=== PATIENT | male | born 1955 | race Caucasian/White ===

== ENCOUNTER → 2019-09-18 | Outpatient (CLI) | payer BC ==
[~2019-09-18] MED LIST: ASPIRIN81 MG PO; CELEBREX100 MG PO; FENTANYL CITRATE/PF 100MCG/2 ML INJ ONE; FLOMAX0.4 MG PO; GABAPENTIN300 MG PO; METOPROLOL SUCC25 MG PO; PROTONIX20 MG PO; TURMERIC538 MG PO; VITAMIN A8000 UNIT PO; VITAMIN D310 MCG PEG; VITAMIN E400 UNI1 PEG; ZINC SULFATE220 MG PO
== END ==
LOC: RAD 05:00 → EDSTATUS 07:30
PROVIDERS: ATTEND Surgery
DX: Z01.818 Encounter for other preprocedural examination (principal); K43.9 Ventral hernia without obstruction or gangrene; Z53.8 Procedure and treatment not carried out for other reasons
CPT/HCPCS: 93005; J3010

== ENCOUNTER 2021-04-08 12:13 | Inpatient (IN) | payer BC, MEDICARE ==
[~2021-04-08] VITALS: Ht 185.4 cm; Wt 110.3 kg
[~2021-04-08 12:13] MED LIST changes: -FENTANYL CITRATE/PF 100MCG/2 ML INJ ONE
[2021-04-08] MEDS ORDERED: HYDROCODONE/APAP 5MG-325MG TAB PO ONE (13:15)
[2021-04-08] MEDS ORDERED: DIPHENHYDRAMINE HCL INJ 50 MG/ML VIAL IV PRN (13:15)
[2021-04-08] MEDS ORDERED: ONDANSETRON HCL INJ 2MG/ML 2ML 2 MG/ML VIAL IV PRN ×2 (13:15→15:45)
[2021-04-08] MEDS ORDERED: FUROSEMIDE INJ 10 MG/ML 4 ML VIAL IV ONE (13:15)
[2021-04-08] MEDS ORDERED: FUROSEMIDE INJ 10 MG/ML 4 ML VIAL ONE (14:00)
[2021-04-08] MEDS ORDERED: HYDROCODONE/APAP 5MG-325MG TAB ONE (14:01)
[2021-04-08] MEDS ORDERED: HYDROCODONE/APAP 7.5MG-325MG 1 EA TAB PO PRN (15:45)
[2021-04-08] MEDS ORDERED: ACETAMINOPHEN 325 MG TAB PO PRN (15:45)
[2021-04-08] MEDS: METOPROLOL TARTRATE 25 MG TAB PO SCH (16:03)
[2021-04-08] MEDS ORDERED: METOPROLOL TARTRATE 50 MG TAB ONE (16:11)
[2021-04-08] MEDS ORDERED: ENOXAPARIN SOD INJ 40 MG/0.4 ML SYR SC SCH (17:00)
[2021-04-08 17:56] VITALS: BP 101/78
[2021-04-08 17:57] VITALS: BP 101/78
[2021-04-08 18:30] VITALS: BP 101/78
[2021-04-08] MEDS: LOSARTAN POTASSIUM 25 MG TAB PO SCH (19:00)
[2021-04-08 19:36] LABS: ANION GAP 16.1 mmol/L (8-16); CALCIUM 8.6 mg/dL (8.4-10.2); CREATININE, SERUM 2.06 mg/dL (0.72-1.25); POTASSIUM 4.1 mmol/L (3.5-5.1)
[2021-04-08 20:00] VITALS: BP 101/62
[2021-04-08 20:09] LABS: INR 1.34; PARTIAL THROMBOPLASTIN TIME 29.8 seconds (23.8-35.5); PROTHROMBIN TIME 17.5 seconds (11.9-14.5)
[2021-04-08] MEDS: FUROSEMIDE INJ 10 MG/ML 4 ML VIAL IV SCH (20:58)
[2021-04-08] MEDS: ZOLPIDEM TARTRATE 5 MG TAB PO PRN (22:30)
[2021-04-08 23:51] VITALS: BP 104/66
[2021-04-09] VITALS (8 sets, daily range): BP systolic 101–121; BP diastolic 76–88
[2021-04-09 05:02] LABS: BASOPHILS % 0.4 % (0.0-1.0); EOSINOPHILS # (AUTO) 0.2 (0.0-0.4); HEMATOCRIT 37.3 % (38.2-49.6); HEMOGLOBIN 11.4 g/dL (14.0-18.0); LYMPHOCYTES # (AUTO) 1.2 (1.0-3.2); LYMPHOCYTES % 15.2 % (18.0-39.1); MEAN CORPUSCULAR HEMOGLOBIN 26.5 pg (28-32); MEAN CORPUSCULAR HGB CONC 30.6 g/dL (31-35); MEAN CORPUSCULAR VOLUME 86.7 fL (81-99); MONOCYTES # (AUTO) 0.8 (0.2-0.8); MONOCYTES % 10.7 % (4.4-11.3); NEUTROPHILS # (AUTO) 5.5 (2.1-6.9); NEUTROPHILS % 70.4 % (38.7-80.0); PLATELET COUNT 178 x10e3/uL (140-360); RED CELL DISTRIBUTION WIDTH 14.5 % (11.7-14.4)
[2021-04-09 05:45] LABS: FERRITIN 37.9 ng/mL (21.81-274.66); THYROID STIMULATING HORMONE 1.389 uIU/mL (0.350-4.940)
[2021-04-09 05:46] LABS: ALBUMIN 3.3 g/dL (3.5-5.0); ALBUMIN/GLOBULIN RATIO 1.4 (0.8-2.0); ANION GAP 15.5 mmol/L (8-16); CALCIUM 8.3 mg/dL (8.4-10.2); CREATININE, SERUM 1.74 mg/dL (0.72-1.25); MAGNESIUM 1.9 MG/DL (1.3-2.1); POTASSIUM 3.5 mmol/L (3.5-5.1)
[2021-04-09] MEDS: FUROSEMIDE INJ 10 MG/ML 4 ML VIAL IV SCH ×3 (05:50→21:29)
[2021-04-09] MEDS: METOPROLOL TARTRATE 25 MG TAB PO SCH ×2 (08:31→16:56)
[2021-04-09] MEDS: METOPROLOL SUCCINATE 25 MG TAB XL PO SCH (08:31)
[2021-04-09] MEDS: LOSARTAN POTASSIUM 25 MG TAB PO SCH ×2 (08:40→16:56)
[2021-04-09] MEDS: ASPIRIN 325 MG TAB EC PO SCH (08:40)
[2021-04-09] MEDS: PANTOPRAZOLE SOD 40 MG TABEC PO SCH ×2 (08:40→16:56)
[2021-04-09] MEDS: TAMSULOSIN HCL 0.4 MG CAP PO SCH (08:40)
[2021-04-09] MEDS: GABAPENTIN 300 MG CAP PO SCH ×3 (08:40→20:37)
[2021-04-09] MEDS: FOLIC ACID 1 MG TAB PO SCH (10:49)
[2021-04-09] MEDS: CYANOCOBALAMIN 1,000 MCG TAB PO SCH (10:49)
[2021-04-09 11:42] LABS: CLARITY,URINE CLEAR (CLEAR); COLOR,URINE YELLOW (YELLOW); LEUKOCYTE ESTERASE ,URINE SMALL (NEGATIVE); NITRITE,URINE NEGATIVE (NEGATIVE); PROTEIN,URINE DIPSTICK 1+ (NEGATIVE)
[2021-04-09 11:43] LABS: BACTERIA,URINE RARE /HPF; EPITHELIAL CELLS,URINE RARE /LPF; KETONES,URINE NEGATIVE (NEGATIVE); RBC,URINE >50 /HPF (0-5); URINE UROBILINOGEN 1 mg/dL (0.2 - 1); WBC,URINE (MAN) 21-50 /HPF (0-5)
[2021-04-09] MEDS: ZOLPIDEM TARTRATE 5 MG TAB PO PRN (20:37)
[2021-04-10] VITALS (8 sets, daily range): BP systolic 103–116; BP diastolic 57–84
[2021-04-10] MEDS: FUROSEMIDE INJ 10 MG/ML 4 ML VIAL IV SCH ×3 (05:32→20:15)
[2021-04-10 06:00] LABS: BASOPHILS % 0.5 % (0.0-1.0); EOSINOPHILS # (AUTO) 0.2 (0.0-0.4); HEMATOCRIT 38.9 % (38.2-49.6); HEMOGLOBIN 12.1 g/dL (14.0-18.0); LYMPHOCYTES # (AUTO) 1.3 (1.0-3.2); LYMPHOCYTES % 20.1 % (18.0-39.1); MEAN CORPUSCULAR HEMOGLOBIN 26.8 pg (28-32); MEAN CORPUSCULAR HGB CONC 31.1 g/dL (31-35); MEAN CORPUSCULAR VOLUME 86.1 fL (81-99); MONOCYTES # (AUTO) 0.7 (0.2-0.8); MONOCYTES % 10.8 % (4.4-11.3); NEUTROPHILS # (AUTO) 4.1 (2.1-6.9); NEUTROPHILS % 65.4 % (38.7-80.0); PLATELET COUNT 205 x10e3/uL (140-360); RED BLOOD COUNT 4.52 x10e6/uL (4.3-5.7); RED CELL DISTRIBUTION WIDTH 14.2 % (11.7-14.4)
[2021-04-10 06:18] LABS: ALBUMIN 2.9 g/dL (3.5-5.0); ALBUMIN/GLOBULIN RATIO 1.1 (0.8-2.0); ANION GAP 12.3 mmol/L (8-16); CALCIUM 7.8 mg/dL (8.4-10.2); CREATININE, SERUM 1.4 mg/dL (0.72-1.25); MAGNESIUM 1.8 MG/DL (1.3-2.1); POTASSIUM 3.3 mmol/L (3.5-5.1)
[2021-04-10] MEDS ORDERED: POTASSIUM CHLORIDE 20 MEQ TAB CR PO STA (08:19)
[2021-04-10] MEDS: ASPIRIN 325 MG TAB EC PO SCH (08:53)
[2021-04-10] MEDS: PANTOPRAZOLE SOD 40 MG TABEC PO SCH ×2 (08:54→17:20)
[2021-04-10] MEDS: LOSARTAN POTASSIUM 25 MG TAB PO SCH ×4 (08:54→17:20)
[2021-04-10] MEDS: METOPROLOL TARTRATE 25 MG TAB PO SCH ×2 (08:54→17:20)
[2021-04-10] MEDS: FOLIC ACID 1 MG TAB PO SCH (08:54)
[2021-04-10] MEDS: CYANOCOBALAMIN 1,000 MCG TAB PO SCH (08:54)
[2021-04-10] MEDS: TAMSULOSIN HCL 0.4 MG CAP PO SCH (08:54)
[2021-04-10] MEDS: GABAPENTIN 300 MG CAP PO SCH ×3 (08:54→20:15)
[2021-04-10] MEDS: METOPROLOL SUCCINATE 25 MG TAB XL PO SCH (08:54)
[2021-04-11] VITALS (8 sets, daily range): BP systolic 90–115; BP diastolic 68–73
[2021-04-11] MEDS: FUROSEMIDE INJ 10 MG/ML 4 ML VIAL IV SCH ×3 (05:16→20:39)
[2021-04-11] MEDS: LOSARTAN POTASSIUM 25 MG TAB PO SCH ×2 (07:40→17:02)
[2021-04-11] MEDS: FOLIC ACID 1 MG TAB PO SCH (09:31)
[2021-04-11] MEDS: ASPIRIN 325 MG TAB EC PO SCH (09:31)
[2021-04-11] MEDS: TAMSULOSIN HCL 0.4 MG CAP PO SCH (09:31)
[2021-04-11] MEDS: METOPROLOL TARTRATE 25 MG TAB PO SCH ×2 (09:32→17:02)
[2021-04-11] MEDS: POTASSIUM CHLORIDE 20 MEQ TAB CR PO SCH (09:32)
[2021-04-11] MEDS: PANTOPRAZOLE SOD 40 MG TABEC PO SCH ×2 (09:33→17:02)
[2021-04-11] MEDS: GABAPENTIN 300 MG CAP PO SCH ×3 (09:33→20:39)
[2021-04-11] MEDS: CYANOCOBALAMIN 1,000 MCG TAB PO SCH (09:33)
[2021-04-11] MEDS: ZOLPIDEM TARTRATE 5 MG TAB PO PRN (23:23)
[2021-04-12] VITALS (13 sets, daily range): BP systolic 86–114; BP diastolic 61–73
[2021-04-12] MEDS: FUROSEMIDE INJ 10 MG/ML 4 ML VIAL IV SCH ×2 (05:05→14:42)
[2021-04-12 08:47] LABS: BASOPHILS % 0.7 % (0.0-1.0); EOSINOPHILS # (AUTO) 0.3 (0.0-0.4); HEMATOCRIT 44.1 % (38.2-49.6); HEMOGLOBIN 13.6 g/dL (14.0-18.0); LYMPHOCYTES # (AUTO) 1.2 (1.0-3.2); LYMPHOCYTES % 22.5 % (18.0-39.1); MEAN CORPUSCULAR HEMOGLOBIN 26.7 pg (28-32); MEAN CORPUSCULAR HGB CONC 30.8 g/dL (31-35); MEAN CORPUSCULAR VOLUME 86.5 fL (81-99); MONOCYTES # (AUTO) 0.7 (0.2-0.8); MONOCYTES % 12.8 % (4.4-11.3); NEUTROPHILS # (AUTO) 3.1 (2.1-6.9); NEUTROPHILS % 57.6 % (38.7-80.0); PLATELET COUNT 218 x10e3/uL (140-360); RED CELL DISTRIBUTION WIDTH 13.7 % (11.7-14.4)
[2021-04-12] MEDS: ASPIRIN 325 MG TAB EC PO SCH (09:00)
[2021-04-12] MEDS: GABAPENTIN 300 MG CAP PO SCH ×2 (09:00→14:42)
[2021-04-12] MEDS: PANTOPRAZOLE SOD 40 MG TABEC PO SCH ×2 (09:00→16:59)
[2021-04-12] MEDS: LOSARTAN POTASSIUM 25 MG TAB PO SCH ×2 (09:00→16:59)
[2021-04-12 09:08] LABS: ANION GAP 11.7 mmol/L (8-16); CALCIUM 8.8 mg/dL (8.4-10.2); CREATININE, SERUM 1.28 mg/dL (0.72-1.25); POTASSIUM 3.7 mmol/L (3.5-5.1)
[2021-04-12] MEDS ORDERED: HEPARIN SOD/SOD CHLORIDE 2,000 ML ONE (11:46)
[2021-04-12] MEDS ORDERED: LIDOCAINE HCL 2% LOCAL 20 ML VIAL ONE (11:46)
[2021-04-12] MEDS ORDERED: MIDAZOLAM HCL 2 MG/2 ML VIAL ONE ×2 (11:52→12:04)
[2021-04-12] MEDS ORDERED: VERAPAMIL HCL 2.5 MG/ML 2 ML VIAL ONE (11:52)
[2021-04-12] MEDS ORDERED: SODIUM CHLORIDE 0.9% 1000ML 1,000 ML ONE (11:53)
[2021-04-12] MEDS ORDERED: IOPAMIDOL 370 MG/ML 200 ML INFUS..BTL INJ ONE (11:53)
[2021-04-12] MEDS ORDERED: FENTANYL CITRATE/PF 100MCG/2 ML INJ ONE (11:53)
[2021-04-12] MEDS ORDERED: ONDANSETRON HCL 4 MG ORAL DISINTEGRATING TAB PO PRN (14:15)
[2021-04-12] MEDS: FOLIC ACID 1 MG TAB PO SCH (14:41)
[2021-04-12] MEDS: TAMSULOSIN HCL 0.4 MG CAP PO SCH (14:41)
[2021-04-12] MEDS: POTASSIUM CHLORIDE 20 MEQ TAB CR PO SCH (14:42)
[2021-04-12] MEDS: CYANOCOBALAMIN 1,000 MCG TAB PO SCH (14:42)
[2021-04-12] MEDS ORDERED: APIXABAN 5 MG TABLET PO SCH (17:00)
[2021-04-12] MEDS ORDERED: VITAMIN B-121000 MCG PO (17:55)
[2021-04-12] MEDS ORDERED: ELIQUIS5 MG PO (17:55)
[2021-04-12] MEDS ORDERED: ASPIRIN CHEW81 MG PO (17:55)
[2021-04-12] MEDS ORDERED: HYDROCODON-ACE1 EA12 PO (17:55)
[2021-04-12] MEDS ORDERED: COZAAR25 MG PO (17:55)
[2021-04-12] MEDS ORDERED: FOLIC ACID0.4 MG PO (17:55)
[2021-04-12] MEDS ORDERED: METOPROLOL SUCC25 MG PO (17:55)
[2021-04-12] MEDS ORDERED: POTASSIUM CHLO20 ME1 PO (17:55)
[2021-04-13] MEDS ORDERED: METOPROLOL SUCCINATE 25 MG TAB XL PO SCH (09:00)
== END 2021-04-12 19:35 | disposition home or self-care (01) | DRG 286 ==
LOC: FSED 12:20 → ERHOLD 14:07 → IMCU 17:35 → MED/SURG3 17:42 → OBSVTOIN 04-09 16:23
PROVIDERS: ADMIT Internal Medicine; ATTEND Internal Medicine
PROC: 4A023N7 Measurement of Cardiac Sampling and Pressure, Left Heart, Percutaneous Approach (ICD-10-PCS; principal; 2021-04-12)
PROC: B2111ZZ Fluoroscopy of Multiple Coronary Arteries using Low Osmolar Contrast (ICD-10-PCS; 2021-04-12)
PROC: B2151ZZ Fluoroscopy of Left Heart using Low Osmolar Contrast (ICD-10-PCS; 2021-04-12)
DX: I11.0 Hypertensive heart disease with heart failure (principal); I50.23 Acute on chronic systolic (congestive) heart failure; N17.9 Acute kidney failure, unspecified; D68.9 Coagulation defect, unspecified; E66.9 Obesity, unspecified; Z68.32 Body mass index [BMI] 32.0-32.9, adult; R74.01 Elevation of levels of liver transaminase levels; Z79.01 Long term (current) use of anticoagulants; N50.89 Other specified disorders of the male genital organs; E87.6 Hypokalemia; D63.8 Anemia in other chronic diseases classified elsewhere; Z86.73 Personal history of transient ischemic attack (TIA), and cerebral infarction without residual deficits; K21.9 Gastro-esophageal reflux disease without esophagitis; N13.9 Obstructive and reflux uropathy, unspecified; I48.0 Paroxysmal atrial fibrillation; D52.9 Folate deficiency anemia, unspecified; K76.1 Chronic passive congestion of liver; N40.1 Benign prostatic hyperplasia with lower urinary tract symptoms; R33.8 Other retention of urine
CPT/HCPCS: 36415; 51700; 71045; 74176; 76770; 80048; 80053; 81001; 81003; 82607; 82728; 82746; 83540; 83735; 84132; 84443; 84466; 85025; 85610; 85730; 87086; 93005; 93306; 93458; 99152; 99284; C1887; G0378; J1650; J1940; J2001; J2250; J3010; J7030; Q9967; U0002

== ENCOUNTER 2022-03-16 16:51 | Inpatient (IN) | payer BC, MEDICARE ==
[~2022-03-16] VITALS: Ht 182.9 cm; Wt 110.2 kg
[~2022-03-16 16:51] MED LIST changes: +ASPIRIN CHEW81 MG PO; +COZAAR25 MG PO; +ELIQUIS5 MG PO; +FOLIC ACID0.4 MG PO; +HYDROCODON-ACE1 EA12 PO; +POTASSIUM CHLO20 ME1 PO; +VITAMIN B-121000 MCG PO
[2022-03-16 17:14] LABS: BASOPHILS % 0.2 % (0.0-1.0); EOSINOPHILS # (AUTO) 0.1 (0.0-0.4); EOSINOPHILS % 1.5 % (0.0-6.0); HEMOGLOBIN 10.8 g/dL (14.0-18.0); LYMPHOCYTES # (AUTO) 0.9 (1.0-3.2); LYMPHOCYTES % 10.4 % (18.0-39.1); MEAN CORPUSCULAR HEMOGLOBIN 23.3 pg (28-32); MEAN CORPUSCULAR HGB CONC 28.4 g/dL (31-35); MEAN CORPUSCULAR VOLUME 81.9 fL (81-99); MONOCYTES # (AUTO) 0.7 (0.2-0.8); MONOCYTES % 8.3 % (4.4-11.3); NEUTROPHILS # (AUTO) 6.7 (2.1-6.9); NEUTROPHILS % 79.4 % (38.7-80.0); PLATELET COUNT 275 x10e3/uL (140-360); RED BLOOD COUNT 4.64 x10e6/uL (4.3-5.7); RED CELL DISTRIBUTION WIDTH 17.1 % (11.7-14.4)
[2022-03-16 17:24] LABS: INR 1.28; PROTHROMBIN TIME 16.2 seconds (11.9-14.5)
[2022-03-16 17:25] LABS: PARTIAL THROMBOPLASTIN TIME 32.6 seconds (23.8-35.5)
[2022-03-16 17:32] LABS: ALBUMIN 3.2 g/dL (3.5-5.0); ALBUMIN/GLOBULIN RATIO 0.9 (0.8-2.0); ANION GAP 14.5 mmol/L (8-16); CALCIUM 8.4 mg/dL (8.4-10.2); CREATININE, SERUM 2.06 mg/dL (0.72-1.25); POTASSIUM 3.5 mmol/L (3.5-5.1)
[2022-03-16 17:38] LABS: CREATINE KINASE MB 7.3 ng/mL (0-5.0)
[2022-03-16 17:47] LABS: CLARITY,URINE CLEAR (CLEAR); COLOR,URINE YELLOW (YELLOW)
[2022-03-16 17:48] LABS: KETONES,URINE NEGATIVE (NEGATIVE); LEUKOCYTE ESTERASE ,URINE NEGATIVE (NEGATIVE); NITRITE,URINE NEGATIVE (NEGATIVE); PROTEIN,URINE DIPSTICK NEGATIVE (NEGATIVE); URINE UROBILINOGEN 0.2 mg/dL (0.2 - 1)
[2022-03-16] MEDS ORDERED: IOPAMIDOL 370 MG/ML 100 ML INFUS..BTL INJ ONE (17:57)
[2022-03-16] MEDS ORDERED: SODIUM CHLORIDE FLUSH 10 ML SYR INJ PRN (19:00)
[2022-03-16] MEDS ORDERED: ONDANSETRON HCL INJ 2MG/ML 2ML 2 MG/ML VIAL IV PRN (19:00)
[2022-03-16] MEDS ORDERED: FUROSEMIDE INJ 10 MG/ML 4 ML VIAL IV ONE ×2 (19:00→22:15)
[2022-03-16 21:58] VITALS: BP 130/92
[2022-03-16 22:05] VITALS: BP 130/92
[2022-03-16 22:45] VITALS: BP 130/92
[2022-03-16 23:00] VITALS: BP 130/92
[2022-03-17] VITALS (9 sets, daily range): BP systolic 106–118; BP diastolic 75–87
[2022-03-17 01:46] LABS: CREATINE KINASE MB 6.1 ng/mL (0-5.0)
[2022-03-17 02:37] LABS: % IRON SATURATION 4 % (15-50); IRON 19 ug/dL (65-175); TOTAL IRON BINDING CAPACITY 472 ug/dL (261-478); TRANSFERRIN 337 mg/dL (174-364)
[2022-03-17 06:43] LABS: BASOPHILS % 0.6 % (0.0-1.0); EOSINOPHILS # (AUTO) 0.1 (0.0-0.4); EOSINOPHILS % 1.9 % (0.0-6.0); HEMATOCRIT 31.8 % (38.2-49.6); HEMOGLOBIN 9.6 g/dL (14.0-18.0); LYMPHOCYTES # (AUTO) 0.7 (1.0-3.2); LYMPHOCYTES % 9.6 % (18.0-39.1); MEAN CORPUSCULAR HEMOGLOBIN 23.4 pg (28-32); MEAN CORPUSCULAR HGB CONC 30.2 g/dL (31-35); MEAN CORPUSCULAR VOLUME 77.6 fL (81-99); MONOCYTES # (AUTO) 0.6 (0.2-0.8); NEUTROPHILS # (AUTO) 5.6 (2.1-6.9); NEUTROPHILS % 79.6 % (38.7-80.0); PLATELET COUNT 200 x10e3/uL (140-360)
[2022-03-17 07:13] LABS: ALBUMIN 2.9 g/dL (3.5-5.0); ALBUMIN/GLOBULIN RATIO 0.9 (0.8-2.0); ANION GAP 13.5 mmol/L (8-16); CREATININE, SERUM 1.93 mg/dL (0.72-1.25); POTASSIUM 3.5 mmol/L (3.5-5.1)
[2022-03-17 07:30] LABS: MAGNESIUM 1.7 MG/DL (1.3-2.1); PHOSPHORUS 3.2 MG/DL (2.3-4.7)
[2022-03-17] MEDS ORDERED: ACETAMINOPHEN 325 MG TAB PO PRN (09:30)
[2022-03-17] MEDS: Morphine 4mg INJECTION 4 MG/ML INJ IV PRN ×3 (09:37→22:44)
[2022-03-17] MEDS ORDERED: FUROSEMIDE INJ 10 MG/ML 4 ML VIAL IV ONE ×2 (11:00→11:30)
[2022-03-17] MEDS: LIDOCAINE 4% PATCH TP SCH (11:33)
[2022-03-17] MEDS: TAMSULOSIN HCL 0.4 MG CAP PO SCH (11:33)
[2022-03-17] MEDS: FERROUS SULFATE 325 MG TAB PO SCH (11:33)
[2022-03-17] MEDS ORDERED: SIMETHICONE 40 MG/0.6 ML BTL PO ONE (12:45)
[2022-03-17] MEDS: APIXABAN 5 MG TABLET PO SCH (16:09)
[2022-03-17] MEDS ORDERED: MAGNESIUM SULFATE 2GM/50ML 50 ML IV PRN ×2 (19:00→19:45)
[2022-03-17 19:04] LABS: ANION GAP 15.7 mmol/L (8-16); CALCIUM 7.9 mg/dL (8.4-10.2); CREATININE, SERUM 1.86 mg/dL (0.72-1.25); POTASSIUM 3.7 mmol/L (3.5-5.1)
[2022-03-17 19:19] LABS: CREATINE KINASE 107 IU/L (30-200)
[2022-03-17] MEDS ORDERED: MAGNESIUM SULFATE 2GM/50ML 50 ML IV SCH (19:30)
[2022-03-17] MEDS ORDERED: MAGNESIUM SULFATE 2GM/50ML 100 ML IV PRN ×2 (19:30)
[2022-03-17] MEDS ORDERED: MAGNESIUM SULFATE 2GM/50ML 100 ML IV SCH (20:00)
[2022-03-17] MEDS: AMIODARONE HCL 200 MG TAB PO SCH (20:53)
[2022-03-17] MEDS ORDERED: MELATONIN 5 MG TABLET PO PRN (22:45)
[2022-03-17] MEDS ORDERED: CYANOCOBALAMIN INJ 1,000 MCG/ML VIAL IM ONE (23:15)
[2022-03-18] VITALS (7 sets, daily range): BP systolic 98–124; BP diastolic 74–90
[2022-03-18] MEDS ORDERED: POTASSIUM CHLORIDE 20 MEQ TAB CR PO STA (02:41)
[2022-03-18] MEDS: MAGNESIUM SULFATE 2GM/50ML 50 ML IV SCH ×2 (02:59→05:14)
[2022-03-18] MEDS: Morphine 4mg INJECTION 4 MG/ML INJ IV PRN ×4 (06:22→21:30)
[2022-03-18 06:36] LABS: BASOPHILS % 0.5 % (0.0-1.0); EOSINOPHILS # (AUTO) 0.2 (0.0-0.4); EOSINOPHILS % 3.2 % (0.0-6.0); HEMATOCRIT 37.2 % (38.2-49.6); HEMOGLOBIN 10.3 g/dL (14.0-18.0); LYMPHOCYTES # (AUTO) 1.1 (1.0-3.2); LYMPHOCYTES % 17.1 % (18.0-39.1); MEAN CORPUSCULAR HEMOGLOBIN 22.8 pg (28-32); MEAN CORPUSCULAR HGB CONC 27.7 g/dL (31-35); MEAN CORPUSCULAR VOLUME 82.3 fL (81-99); MONOCYTES # (AUTO) 0.6 (0.2-0.8); MONOCYTES % 8.8 % (4.4-11.3); NEUTROPHILS # (AUTO) 4.6 (2.1-6.9); NEUTROPHILS % 70.2 % (38.7-80.0); PLATELET COUNT 204 x10e3/uL (140-360); RED BLOOD COUNT 4.52 x10e6/uL (4.3-5.7); RED CELL DISTRIBUTION WIDTH 17.2 % (11.7-14.4)
[2022-03-18 06:58] LABS: CALCIUM 8.1 mg/dL (8.4-10.2); CREATININE, SERUM 1.79 mg/dL (0.72-1.25)
[2022-03-18] MEDS ORDERED: ONDANSETRON HCL 4 MG ORAL DISINTEGRATING TAB SL PRN (09:30)
[2022-03-18] MEDS: AMIODARONE HCL 200 MG TAB PO SCH ×2 (10:01→17:26)
[2022-03-18] MEDS: SENNOSIDES 8.6 MG TAB PO SCH (10:01)
[2022-03-18] MEDS: TAMSULOSIN HCL 0.4 MG CAP PO SCH (10:01)
[2022-03-18] MEDS: FERROUS SULFATE 325 MG TAB PO SCH (10:01)
[2022-03-18] MEDS: APIXABAN 5 MG TABLET PO SCH ×2 (10:01→17:26)
[2022-03-18] MEDS: IRON SUCROSE 100 MG in SODIUM CHLORIDE 0.9% 100 ML IV SCH (10:02)
[2022-03-18] MEDS: LIDOCAINE 4% PATCH TP SCH (10:02)
[2022-03-18] MEDS: METOPROLOL SUCCINATE 25 MG TAB XL PO SCH (10:02)
[2022-03-18] MEDS ORDERED: FUROSEMIDE INJ 10 MG/ML 4 ML VIAL IV ONE (10:30)
[2022-03-18] MEDS: BUMETANIDE INJ 0.25MG/ML 4ML VIAL IV SCH ×3 (12:30→23:41)
[2022-03-18] MEDS: METOLAZONE 5 MG TAB PO SCH (13:15)
[2022-03-18] MEDS ORDERED: POTASSIUM CHLORIDE 20 MEQ TAB CR PO ONE (15:03)
[2022-03-18] MEDS ORDERED: FUROSEMIDE INJ 10 MG/ML 4 ML VIAL IV SCH (15:15)
[2022-03-18] MEDS: GUAIFENESIN 200 MG/10 ML UDC PO PRN ×2 (16:19→21:29)
[2022-03-18 18:45] LABS: ANION GAP 13.5 mmol/L (8-16); CREATININE, SERUM 1.86 mg/dL (0.72-1.25); POTASSIUM 4.5 mmol/L (3.5-5.1)
[2022-03-18] MEDS: CYANOCOBALAMIN INJ 1,000 MCG/ML VIAL IM SCH (21:29)
[2022-03-18] MEDS: DIPHENHYDRAMINE HCL 25 MG CAP PO PRN (22:08)
[2022-03-19] VITALS (7 sets, daily range): BP systolic 93–116; BP diastolic 71–96
[2022-03-19] MEDS: DIPHENHYDRAMINE HCL 25 MG CAP PO PRN (03:58)
[2022-03-19] MEDS: GUAIFENESIN 200 MG/10 ML UDC PO PRN ×4 (03:58→20:31)
[2022-03-19] MEDS: Morphine 4mg INJECTION 4 MG/ML INJ IV PRN ×4 (03:59→20:31)
[2022-03-19] MEDS: BUMETANIDE INJ 0.25MG/ML 4ML VIAL IV SCH ×4 (05:45→23:10)
[2022-03-19 08:11] LABS: BASOPHILS % 0.4 % (0.0-1.0); EOSINOPHILS # (AUTO) 0.2 (0.0-0.4); EOSINOPHILS % 2.3 % (0.0-6.0); HEMATOCRIT 36.9 % (38.2-49.6); HEMOGLOBIN 10.3 g/dL (14.0-18.0); LYMPHOCYTES # (AUTO) 0.8 (1.0-3.2); LYMPHOCYTES % 11.6 % (18.0-39.1); MEAN CORPUSCULAR HGB CONC 27.9 g/dL (31-35); MEAN CORPUSCULAR VOLUME 82.6 fL (81-99); MONOCYTES # (AUTO) 0.7 (0.2-0.8); MONOCYTES % 9.7 % (4.4-11.3); NEUTROPHILS # (AUTO) 5.3 (2.1-6.9); NEUTROPHILS % 75.7 % (38.7-80.0); PLATELET COUNT 196 x10e3/uL (140-360); RED BLOOD COUNT 4.47 x10e6/uL (4.3-5.7); RED CELL DISTRIBUTION WIDTH 17.5 % (11.7-14.4)
[2022-03-19 08:21] LABS: PHOSPHORUS 3.9 MG/DL (2.3-4.7)
[2022-03-19 08:24] LABS: ALBUMIN 3.2 g/dL (3.5-5.0); ANION GAP 15.8 mmol/L (8-16); CALCIUM 8.4 mg/dL (8.4-10.2); CREATININE, SERUM 1.91 mg/dL (0.72-1.25); POTASSIUM 3.8 mmol/L (3.5-5.1)
[2022-03-19] MEDS: METOPROLOL SUCCINATE 25 MG TAB XL PO SCH (08:47)
[2022-03-19] MEDS: AMIODARONE HCL 200 MG TAB PO SCH ×2 (08:47→17:19)
[2022-03-19] MEDS: APIXABAN 5 MG TABLET PO SCH ×2 (08:47→17:18)
[2022-03-19] MEDS: IRON SUCROSE 100 MG in SODIUM CHLORIDE 0.9% 100 ML IV SCH (08:47)
[2022-03-19] MEDS: POTASSIUM CHLORIDE 20 MEQ TAB CR PO SCH (08:48)
[2022-03-19] MEDS: TAMSULOSIN HCL 0.4 MG CAP PO SCH (08:48)
[2022-03-19] MEDS: METOLAZONE 5 MG TAB PO SCH (08:48)
[2022-03-19] MEDS: LIDOCAINE 4% PATCH TP SCH (08:48)
[2022-03-19] MEDS: SENNOSIDES 8.6 MG TAB PO SCH (08:48)
[2022-03-19] MEDS: FERROUS SULFATE 325 MG TAB PO SCH (08:49)
[2022-03-19] MEDS ORDERED: POTASSIUM CHLORIDE 20 MEQ TAB CR PO ONE (12:00)
[2022-03-19] MEDS: SPIRONOLACTONE 25 MG TAB PO SCH (17:18)
[2022-03-19] MEDS: HYDROXYZINE HCL 25 MG TAB PO PRN ×2 (17:19→21:16)
[2022-03-19] MEDS: CYANOCOBALAMIN INJ 1,000 MCG/ML VIAL IM SCH (20:15)
[2022-03-19] MEDS ORDERED: FUROSEMIDE INJ 10 MG/ML 4 ML VIAL ONE (20:24)
[2022-03-20] VITALS (8 sets, daily range): BP systolic 92–143; BP diastolic 66–85
[2022-03-20] MEDS: BUMETANIDE INJ 0.25MG/ML 4ML VIAL IV SCH ×3 (05:08→17:02)
[2022-03-20] MEDS: Morphine 4mg INJECTION 4 MG/ML INJ IV PRN ×3 (05:09→21:15)
[2022-03-20] MEDS: HYDROXYZINE HCL 25 MG TAB PO PRN ×3 (05:31→21:15)
[2022-03-20] MEDS: GUAIFENESIN 200 MG/10 ML UDC PO PRN ×2 (05:31→21:15)
[2022-03-20 07:16] LABS: ANION GAP 17.8 mmol/L (8-16); CALCIUM 8.8 mg/dL (8.4-10.2); CREATININE, SERUM 2.15 mg/dL (0.72-1.25); POTASSIUM 3.8 mmol/L (3.5-5.1)
[2022-03-20] MEDS: AMIODARONE HCL 200 MG TAB PO SCH ×2 (09:00→17:01)
[2022-03-20] MEDS: METOLAZONE 5 MG TAB PO SCH (09:00)
[2022-03-20] MEDS: METOPROLOL SUCCINATE 25 MG TAB XL PO SCH (09:01)
[2022-03-20] MEDS: APIXABAN 5 MG TABLET PO SCH ×2 (09:02→17:01)
[2022-03-20] MEDS: LIDOCAINE 4% PATCH TP SCH (09:02)
[2022-03-20] MEDS: POTASSIUM CHLORIDE 20 MEQ TAB CR PO SCH (09:02)
[2022-03-20] MEDS: SPIRONOLACTONE 25 MG TAB PO SCH (09:02)
[2022-03-20] MEDS: SENNA-S TABLET PO SCH ×3 (09:02→20:37)
[2022-03-20] MEDS: TAMSULOSIN HCL 0.4 MG CAP PO SCH (09:02)
[2022-03-20] MEDS: IRON SUCROSE 100 MG in SODIUM CHLORIDE 0.9% 100 ML IV SCH (09:05)
[2022-03-20 09:07] LABS: CREATININE,URINE RANDOM 8.82 mg/dL (63-166); TOTAL PROTEIN, URINE < 6.8 mg/dL (1-14)
[2022-03-20] MEDS ORDERED: POTASSIUM CHLORIDE 20 MEQ TAB CR PO ONE (17:00)
[2022-03-20] MEDS: CYANOCOBALAMIN INJ 1,000 MCG/ML VIAL IM SCH (20:36)
[2022-03-21] VITALS (7 sets, daily range): BP systolic 91–108; BP diastolic 53–74
[2022-03-21] MEDS: BUMETANIDE INJ 0.25MG/ML 4ML VIAL IV SCH ×4 (00:22→17:56)
[2022-03-21 05:40] LABS: BASOPHILS # (AUTO) 0.1 (0.0-0.1); BASOPHILS % 0.7 % (0.0-1.0); EOSINOPHILS # (AUTO) 0.2 (0.0-0.4); EOSINOPHILS % 2.3 % (0.0-6.0); HEMATOCRIT 35.6 % (38.2-49.6); HEMOGLOBIN 10.3 g/dL (14.0-18.0); LYMPHOCYTES # (AUTO) 0.9 (1.0-3.2); LYMPHOCYTES % 13.4 % (18.0-39.1); MEAN CORPUSCULAR HEMOGLOBIN 23.4 pg (28-32); MEAN CORPUSCULAR HGB CONC 28.9 g/dL (31-35); MEAN CORPUSCULAR VOLUME 80.7 fL (81-99); MONOCYTES # (AUTO) 0.8 (0.2-0.8); MONOCYTES % 10.9 % (4.4-11.3); NEUTROPHILS # (AUTO) 5.1 (2.1-6.9); NEUTROPHILS % 72.3 % (38.7-80.0); PLATELET COUNT 215 x10e3/uL (140-360); RED BLOOD COUNT 4.41 x10e6/uL (4.3-5.7); RED CELL DISTRIBUTION WIDTH 17.5 % (11.7-14.4)
[2022-03-21 06:14] LABS: ANION GAP 14.4 mmol/L (8-16); CALCIUM 9.2 mg/dL (8.4-10.2); CREATININE, SERUM 2.42 mg/dL (0.72-1.25); PHOSPHORUS 4.1 MG/DL (2.3-4.7); POTASSIUM 4.4 mmol/L (3.5-5.1)
[2022-03-21] MEDS ORDERED: ALBUMIN 5% 0.05 GM/ML BTL IV ONE (08:45)
[2022-03-21] MEDS: SPIRONOLACTONE 25 MG TAB PO SCH (09:00)
[2022-03-21] MEDS: IRON SUCROSE 100 MG in SODIUM CHLORIDE 0.9% 100 ML IV SCH (09:00)
[2022-03-21] MEDS: Morphine 4mg INJECTION 4 MG/ML INJ IV PRN ×3 (09:15→18:43)
[2022-03-21] MEDS: GUAIFENESIN 200 MG/10 ML UDC PO PRN ×3 (09:15→18:43)
[2022-03-21] MEDS: AMIODARONE HCL 200 MG TAB PO SCH ×2 (09:17→17:56)
[2022-03-21] MEDS: SENNA-S TABLET PO SCH ×3 (09:18→21:13)
[2022-03-21] MEDS: METOPROLOL SUCCINATE 25 MG TAB XL PO SCH (09:19)
[2022-03-21] MEDS: POTASSIUM CHLORIDE 20 MEQ TAB CR PO SCH (09:19)
[2022-03-21] MEDS: TAMSULOSIN HCL 0.4 MG CAP PO SCH (09:19)
[2022-03-21] MEDS: APIXABAN 5 MG TABLET PO SCH ×2 (09:20→17:56)
[2022-03-21] MEDS: METOLAZONE 5 MG TAB PO SCH (09:22)
[2022-03-21] MEDS: LIDOCAINE 4% PATCH TP SCH (09:22)
[2022-03-21] MEDS ORDERED: SODIUM CHLORIDE 0.9% 100 ML ONE (10:28)
[2022-03-21] MEDS: ALBUMIN 5% 250ML 250 ML IV SCH ×2 (10:32→13:36)
[2022-03-21] MEDS: HYDROXYZINE HCL 25 MG TAB PO PRN ×2 (12:24→18:43)
[2022-03-21 19:19] LABS: ANION GAP 17.2 mmol/L (8-16); CALCIUM 8.6 mg/dL (8.4-10.2); CREATININE, SERUM 2.47 mg/dL (0.72-1.25); POTASSIUM 4.2 mmol/L (3.5-5.1)
[2022-03-21] MEDS: CYANOCOBALAMIN INJ 1,000 MCG/ML VIAL IM SCH (21:13)
[2022-03-22] VITALS: BP 90/60
[2022-03-22] MEDS: BUMETANIDE INJ 0.25MG/ML 4ML VIAL IV SCH ×2 (00:13→09:15)
[2022-03-22 04:00] VITALS: BP 115/69
[2022-03-22] MEDS: HYDROXYZINE HCL 25 MG TAB PO PRN ×3 (05:02→21:27)
[2022-03-22] MEDS: GUAIFENESIN 200 MG/10 ML UDC PO PRN ×2 (05:03→09:44)
[2022-03-22] MEDS: Morphine 4mg INJECTION 4 MG/ML INJ IV PRN ×4 (05:04→21:10)
[2022-03-22 06:06] LABS: BASOPHILS % 0.7 % (0.0-1.0); EOSINOPHILS # (AUTO) 0.1 (0.0-0.4); EOSINOPHILS % 2.3 % (0.0-6.0); HEMATOCRIT 31.7 % (38.2-49.6); HEMOGLOBIN 9.7 g/dL (14.0-18.0); LYMPHOCYTES # (AUTO) 0.9 (1.0-3.2); LYMPHOCYTES % 15.2 % (18.0-39.1); MEAN CORPUSCULAR HEMOGLOBIN 23.3 pg (28-32); MEAN CORPUSCULAR HGB CONC 30.6 g/dL (31-35); MONOCYTES # (AUTO) 0.5 (0.2-0.8); MONOCYTES % 8.4 % (4.4-11.3); NEUTROPHILS # (AUTO) 4.4 (2.1-6.9); NEUTROPHILS % 73.1 % (38.7-80.0); PLATELET COUNT 188 x10e3/uL (140-360); RED BLOOD COUNT 4.17 x10e6/uL (4.3-5.7); RED CELL DISTRIBUTION WIDTH 17.6 % (11.7-14.4)
[2022-03-22 06:34] LABS: MAGNESIUM 1.9 MG/DL (1.3-2.1); PHOSPHORUS 4.6 MG/DL (2.3-4.7)
[2022-03-22 07:10] LABS: ALBUMIN 3.4 g/dL (3.5-5.0); ALBUMIN/GLOBULIN RATIO 1.1 (0.8-2.0); ANION GAP 16.2 mmol/L (8-16); CALCIUM 9.1 mg/dL (8.4-10.2); CREATININE, SERUM 2.53 mg/dL (0.72-1.25); POTASSIUM 3.2 mmol/L (3.5-5.1)
[2022-03-22 07:45] VITALS: BP 100/70
[2022-03-22] MEDS: IRON SUCROSE 100 MG in SODIUM CHLORIDE 0.9% 100 ML IV SCH (09:13)
[2022-03-22] MEDS: SENNA-S TABLET PO SCH ×3 (09:14→21:11)
[2022-03-22] MEDS: METOLAZONE 5 MG TAB PO SCH (09:14)
[2022-03-22] MEDS: SPIRONOLACTONE 25 MG TAB PO SCH (09:15)
[2022-03-22] MEDS: APIXABAN 5 MG TABLET PO SCH ×2 (09:15→16:51)
[2022-03-22] MEDS: TAMSULOSIN HCL 0.4 MG CAP PO SCH (09:15)
[2022-03-22] MEDS: METOPROLOL SUCCINATE 25 MG TAB XL PO SCH (09:15)
[2022-03-22] MEDS: AMIODARONE HCL 200 MG TAB PO SCH ×2 (09:15→16:50)
[2022-03-22] MEDS: POTASSIUM CHLORIDE 20 MEQ TAB CR PO SCH (09:16)
[2022-03-22] MEDS: LIDOCAINE 4% PATCH TP SCH (09:16)
[2022-03-22] MEDS ORDERED: SODIUM CHLORIDE 0.9% 100 ML ONE (09:55)
[2022-03-22] MEDS ORDERED: SODIUM CHLORIDE 0.9% 500ML 500 ML ONE (09:55)
[2022-03-22] MEDS ORDERED: POTASSIUM CHLORIDE 20 MEQ TAB CR PO ONE (10:00)
[2022-03-22 11:39] VITALS: BP 99/54
[2022-03-22] MEDS ORDERED: POTASSIUM CHLORIDE 10MEQ/100ML 200 ML IV ONE (12:00)
[2022-03-22 15:21] VITALS: BP 98/64
[2022-03-22] MEDS: BUMETANIDE 1 MG TAB PO SCH (16:51)
[2022-03-22] MEDS: PANTOPRAZOLE SOD 40 MG TABEC PO SCH (16:51)
[2022-03-22 19:07] LABS: CALCIUM 8.9 mg/dL (8.4-10.2); CREATININE, SERUM 2.58 mg/dL (0.72-1.25)
[2022-03-22 20:00] VITALS: BP 92/71
[2022-03-22] MEDS: CYANOCOBALAMIN INJ 1,000 MCG/ML VIAL IM SCH (21:13)
[2022-03-23] VITALS: BP 98/63
[2022-03-23 03:47] VITALS: BP 98/63
[2022-03-23 04:15] VITALS: BP 93/66
[2022-03-23 05:50] LABS: BASOPHILS % 0.4 % (0.0-1.0); EOSINOPHILS # (AUTO) 0.1 (0.0-0.4); EOSINOPHILS % 1.8 % (0.0-6.0); HEMATOCRIT 34.1 % (38.2-49.6); HEMOGLOBIN 9.7 g/dL (14.0-18.0); LYMPHOCYTES # (AUTO) 0.9 (1.0-3.2); LYMPHOCYTES % 16.2 % (18.0-39.1); MEAN CORPUSCULAR HGB CONC 28.4 g/dL (31-35); MONOCYTES # (AUTO) 0.6 (0.2-0.8); MONOCYTES % 9.7 % (4.4-11.3); NEUTROPHILS # (AUTO) 4.1 (2.1-6.9); NEUTROPHILS % 71.7 % (38.7-80.0); PLATELET COUNT 196 x10e3/uL (140-360); RED BLOOD COUNT 4.22 x10e6/uL (4.3-5.7); RED CELL DISTRIBUTION WIDTH 18.4 % (11.7-14.4)
[2022-03-23 06:03] LABS: MEAN CORPUSCULAR VOLUME 80.8 fL (81-99)
[2022-03-23 06:22] LABS: ANION GAP 15.7 mmol/L (8-16); CALCIUM 8.9 mg/dL (8.4-10.2); CREATININE, SERUM 2.76 mg/dL (0.72-1.25); POTASSIUM 3.7 mmol/L (3.5-5.1)
[2022-03-23 06:48] LABS: MAGNESIUM 1.8 MG/DL (1.3-2.1); PHOSPHORUS 4.1 MG/DL (2.3-4.7)
[2022-03-23] MEDS: LIDOCAINE 4% PATCH TP SCH (08:26)
[2022-03-23] MEDS: SPIRONOLACTONE 25 MG TAB PO SCH (08:27)
[2022-03-23] MEDS: BUMETANIDE 1 MG TAB PO SCH (08:27)
[2022-03-23] MEDS: TAMSULOSIN HCL 0.4 MG CAP PO SCH (08:27)
[2022-03-23] MEDS: SENNA-S TABLET PO SCH (08:28)
[2022-03-23] MEDS: POTASSIUM CHLORIDE 20 MEQ TAB CR PO SCH (08:28)
[2022-03-23] MEDS: METOPROLOL SUCCINATE 25 MG TAB XL PO SCH (08:30)
[2022-03-23] MEDS: APIXABAN 5 MG TABLET PO SCH (08:30)
[2022-03-23] MEDS: AMIODARONE HCL 200 MG TAB PO SCH (08:30)
[2022-03-23 08:46] VITALS: BP 120/73
[2022-03-23] MEDS: PANTOPRAZOLE SOD 40 MG TABEC PO SCH (08:48)
[2022-03-23] MEDS: Morphine 4mg INJECTION 4 MG/ML INJ IV PRN (08:48)
[2022-03-23 08:53] VITALS: BP 120/73
[2022-03-23] MEDS ORDERED: PROTONIX40 MG/ML PO (12:14)
[2022-03-23] MEDS ORDERED: AMIODARONE HCL200 MG PO (12:14)
[2022-03-23] MEDS ORDERED: KLOR-CON M2020 MEQ PO (12:14)
[2022-03-23] MEDS ORDERED: Cyanocobalamin Inj IM (12:14)
[2022-03-23] MEDS ORDERED: ALDACTONE25 MG PO (12:14)
[2022-03-23] MEDS ORDERED: FLOMAX0.4 MG PO (12:14)
[2022-03-23] MEDS ORDERED: TOPROL XL25 MG PO (12:14)
[2022-03-23] MEDS ORDERED: BUMETANIDE1 MG PO (12:14)
[2022-03-23] MEDS ORDERED: ELIQUIS5 MG PO (12:14)
[2022-03-23] MEDS ORDERED: GUAIFENESI100 MG/5 M PO (12:14)
[2022-03-23 12:38] VITALS: BP 95/56
[2022-03-23] MEDS ORDERED: AMIODARONE HCL400 MG PO (15:05)
[2022-03-23] MEDS ORDERED: AZITHROMYCIN 250 MG TAB PO SCH (20:00)
== END 2022-03-23 16:15 | disposition home or self-care (01) | DRG 291 ==
LOC: ER 16:56 → ERHOLD 18:53 → MED/SURG3 21:04
PROVIDERS: ADMIT Family Medicine Adult Medicine; ATTEND Family Medicine Adult Medicine
DX: I13.0 Hypertensive heart and chronic kidney disease with heart failure and stage 1 through stage 4 chronic kidney disease, or unspecified chronic kidney disease (principal); I50.23 Acute on chronic systolic (congestive) heart failure; I48.20 Chronic atrial fibrillation, unspecified; N17.9 Acute kidney failure, unspecified; I47.20 Ventricular tachycardia, unspecified; R10.9 Unspecified abdominal pain; D50.9 Iron deficiency anemia, unspecified; R60.1 Generalized edema; I08.3 Combined rheumatic disorders of mitral, aortic and tricuspid valves; I89.0 Lymphedema, not elsewhere classified; K21.9 Gastro-esophageal reflux disease without esophagitis; N40.1 Benign prostatic hyperplasia with lower urinary tract symptoms; H54.40 Blindness, one eye, unspecified eye; I25.5 Ischemic cardiomyopathy; I69.398 Other sequelae of cerebral infarction; E88.09 Other disorders of plasma-protein metabolism, not elsewhere classified; N18.32 Chronic kidney disease, stage 3b; N20.0 Calculus of kidney; E66.01 Morbid (severe) obesity due to excess calories; K59.00 Constipation, unspecified; R25.2 Cramp and spasm; E53.8 Deficiency of other specified B group vitamins; R35.0 Frequency of micturition; Z68.33 Body mass index [BMI] 33.0-33.9, adult; Z91.119 Patient's noncompliance with dietary regimen due to unspecified reason; Z79.01 Long term (current) use of anticoagulants; Z88.0 Allergy status to penicillin; Z79.82 Long term (current) use of aspirin; Z79.891 Long term (current) use of opiate analgesic; Z79.899 Other long term (current) drug therapy; Z98.890 Other specified postprocedural states; Z96.653 Presence of artificial knee joint, bilateral; Z59.6 Low income; Z82.49 Family history of ischemic heart disease and other diseases of the circulatory system; Z91.14 Patient's other noncompliance with medication regimen
CPT/HCPCS: 36415; 71045; 71046; 74177; 76770; 80048; 80053; 81001; 82270; 82550; 82553; 82570; 82607; 82746; 83540; 83605; 83690; 83735; 83880; 83970; 84100; 84156; 84466; 84484; 84550; 85025; 85045; 85610; 85730; 86335; 87040; 93005; 93306; 94799; 99252; 99284; J0456; J1756; J1940; J2270; J3410; J3420; J3475; J3480; J7040; J7050; P9045; Q9967